=== PATIENT | female | born 1945 | race Two or more races ===

== ENCOUNTER → 2017-05-19 | Outpatient (CLI) | payer OTHER ==
[~2017-05-19] MED LIST: CA C PO; CHOL200074 PO; DORZ10DR7 EACHEYE; LACT1CAP15 PO; LEVO100T PO; MESA1.2T PO; MULT-717 PO; OMEG1CAP23 PO
== END | disposition home or self-care (01) ==
LOC: CFH 10:15
PROVIDERS: ATTEND Family Medicine
DX: Z12.31 Encounter for screening mammogram for malignant neoplasm of breast (principal)
CPT/HCPCS: 77063; G0202

== ENCOUNTER → 2018-05-20 | Outpatient (CLI) | payer OTHER | END | disposition home or self-care (01) | LOC: CFH 09:43 | PROVIDERS: ATTEND Family Medicine | DX: Z12.31 Encounter for screening mammogram for malignant neoplasm of breast (principal); Z85.3 Personal history of malignant neoplasm of breast | CPT/HCPCS: 77063; 77067 ==

== ENCOUNTER → 2018-06-23 | Outpatient (CLI) | payer OTHER | END | disposition home or self-care (01) | LOC: CFH 09:01 | PROVIDERS: ATTEND Family Medicine | DX: Z13.820 Encounter for screening for osteoporosis (principal); M85.88 Other specified disorders of bone density and structure, other site | CPT/HCPCS: 77080 ==

== ENCOUNTER 2019-06-14 09:42 | Outpatient (CLI) | payer OTHER | END 2019-06-14 23:59 | disposition home or self-care (01) | LOC: CFH 09:42 | PROVIDERS: ATTEND Family Medicine | DX: N63.10 Unspecified lump in the right breast, unspecified quadrant (principal); Z80.3 Family history of malignant neoplasm of breast | CPT/HCPCS: 76642; 77065 ==

== ENCOUNTER → 2019-06-29 | Outpatient (CLI) | payer OTHER ==
[~2019-06-29] MED LIST changes: +OMNIPAQUE 350 MG/ML, 100ML BOTTLE ONE
== END | disposition home or self-care (01) ==
LOC: RAD 13:39
PROVIDERS: ATTEND Surgery
DX: K80.20 Calculus of gallbladder without cholecystitis without obstruction (principal); C50.311 Malignant neoplasm of lower-inner quadrant of right female breast; R42 Dizziness and giddiness
CPT/HCPCS: 36415; 70553; 71260; 74177; 82565; Q9967

== ENCOUNTER → 2019-06-30 | Outpatient (CLI) | payer OTHER ==
[~2019-06-30] MED LIST changes: -OMNIPAQUE 350 MG/ML, 100ML BOTTLE ONE
== END | disposition home or self-care (01) ==
LOC: RAD 09:49
PROVIDERS: ATTEND Surgery
DX: M17.0 Bilateral primary osteoarthritis of knee (principal); M19.019 Primary osteoarthritis, unspecified shoulder; C50.311 Malignant neoplasm of lower-inner quadrant of right female breast; R42 Dizziness and giddiness; Z82.49 Family history of ischemic heart disease and other diseases of the circulatory system; Z82.5 Family history of asthma and other chronic lower respiratory diseases; Z83.3 Family history of diabetes mellitus; Z84.89 Family history of other specified conditions; M19.012 Primary osteoarthritis, left shoulder; M19.011 Primary osteoarthritis, right shoulder; M19.072 Primary osteoarthritis, left ankle and foot; M19.071 Primary osteoarthritis, right ankle and foot
CPT/HCPCS: 78306; A9503

== ENCOUNTER → 2019-07-12 | Outpatient (CLI) | payer OTHER ==
[~2019-07-12] MED LIST changes: +ROSU5TAB PO
== END | disposition home or self-care (01) ==
LOC: STAR 09:31
PROVIDERS: ATTEND Surgery
DX: Z01.818 Encounter for other preprocedural examination (principal); C50.311 Malignant neoplasm of lower-inner quadrant of right female breast; Z85.3 Personal history of malignant neoplasm of breast
CPT/HCPCS: 93005

== ENCOUNTER 2019-07-20 11:53 | Observation (INO) | payer OTHER ==
[~2019-07-20] VITALS: Ht 152.4 cm; Wt 82.1 kg
[~2019-07-20 11:53] MED LIST changes: +BUPIVACAINE/EPI 0.5% 1:200K ONE; +ISOSULFAN BLUE 10 MG/ML, 5ML IV ONE
[2019-07-20] MEDS ORDERED: LACTATED RINGERS 1,000 ML IV SCH ×2 (13:27→20:00)
[2019-07-20] MEDS ORDERED: ACETAMINOPHEN 500 MG TABLET PO ONE (13:30)
[2019-07-20] MEDS ORDERED: ONDANSETRON ODT 8 MG PO ONE (13:30)
[2019-07-20] MEDS ORDERED: GABAPENTIN 300 MG CAPSULE PO ONE (13:30)
[2019-07-20] MEDS ORDERED: SCOPOLAMINE PATCH, 1.5MG PATCH.TD72 TD ONE (13:30)
[2019-07-20] MEDS ORDERED: MIDAZOLAM 1 MG/ML, 2ML ONE (14:24)
[2019-07-20] MEDS ORDERED: FENTANYL PF 250 MCG/5ML ONE ×2 (14:24→15:35)
[2019-07-20 14:28] LABS: BASOPHILS # (AUTO) 0.13 x10^3/uL (0-0.1); BASOPHILS % (AUTO) 2 % (0-1); EOSINOPHILS # (AUTO) 0.07 x10^3/uL (0-0.4); EOSINOPHILS % (AUTO) 1 % (1-7); LYMPHOCYTES # (AUTO) 1.84 x10^3/uL (1-3.4); LYMPHOCYTES % (AUTO) 28 % (22-44); MD NO; MEAN CORPUSCULAR HEMOGLOBIN 28.5 pg (27.0-34.8); MEAN CORPUSCULAR HGB CONC 32.7 g/dL (32.4-35.8); MEAN CORPUSCULAR VOLUME 87.2 fL (80-100); MEAN PLATELET VOLUME 8.5 fL (7.4-10.4); MONOCYTES # (AUTO) 0.46 x10^3/uL (0.2-0.8); MONOCYTES % (AUTO) 7 % (2-9); NEUTROPHILS # (AUTO) 4.03 x10^3/uL (1.8-6.8); NEUTROPHILS % (AUTO) 62 % (42-75); PLATELET COUNT 315 x10^3/uL (130-400); RED BLOOD COUNT 4.56 x10^6/uL (3.82-5.3); RED CELL DISTRIBUTION WIDTH 14.8 % (9.6-15.2)
[2019-07-20] MEDS ORDERED: PROMETHAZINE 25 MG/ML, 1ML IV PRN (15:30)
[2019-07-20] MEDS ORDERED: KETOROLAC 30 MG/1 ML IV PRN (15:30)
[2019-07-20] MEDS ORDERED: LABETALOL 5MG/ML, 20ML IV PRN (15:30)
[2019-07-20] MEDS ORDERED: DIAZEPAM 5 MG/ML, 2ML IVPush PRN (15:30)
[2019-07-20] MEDS ORDERED: OXYcodone 5 MG/5 ML ORAL.SOL UDC PO PRN (15:30)
[2019-07-20] MEDS ORDERED: hydrALAzine 20 MG/ML, 1ML IV PRN (15:30)
[2019-07-20] MEDS ORDERED: ACETAMINOPHEN 325 MG TABLET PO PRN (15:30)
[2019-07-20] MEDS ORDERED: MEPERIDINE/PF 25MG/0.5ML IVPush PRN (15:30)
[2019-07-20] MEDS ORDERED: ALBUTEROL SULFATE 2.5 MG/3 ML NPPB PRN (15:30)
[2019-07-20] MEDS ORDERED: GLYCOPYRROLATE 0.2MG/1ML, 5ML ONE (16:49)
[2019-07-20] MEDS ORDERED: CEFAZOLIN 1,000 MG ONE (16:49)
[2019-07-20] MEDS ORDERED: SUCCINYLCHOLINE 20 MG/ML, 10ML ONE (16:49)
[2019-07-20] MEDS ORDERED: DEXAMETHASONE 4 MG/ML, 1ML ONE (16:49)
[2019-07-20] MEDS ORDERED: ROCURONIUM 10MG/ML,5ML ONE (16:49)
[2019-07-20] MEDS ORDERED: PROPOFOL 10 MG/ML, 20ML ONE (16:49)
[2019-07-20] MEDS ORDERED: NEOSTIGMINE 1 MG/ML, 10ML ONE (16:49)
[2019-07-20] MEDS ORDERED: ONDANSETRON 2MG/ML, 2ML ONE (16:49)
[2019-07-20] MEDS ORDERED: FENTANYL PF 100 MCG/2ML ONE ×2 (16:59→17:39)
[2019-07-20] MEDS: FENTANYL PF 100 MCG/2ML IV PRN ×4 (17:03→17:50)
[2019-07-20] MEDS ORDERED: OXYcodone 5 MG/5 ML ORAL.SOL UDC ONE (17:15)
[2019-07-20] MEDS ORDERED: HYDROmorphone 1 MG/ML, 1ML VIAL ONE (17:53)
[2019-07-20] MEDS: HYDROmorphone 2 MG/ML, 1ML IVPush PRN ×2 (17:56→18:10)
[2019-07-20] MEDS ORDERED: MORPHINE SULFATE 4 MG/ML, 1ML IVPush PRN (20:00)
[2019-07-20] MEDS ORDERED: ONDANSETRON 2MG/ML, 2ML IVPush PRN (20:30)
[2019-07-20] MEDS ORDERED: DIPHENHYDRAMINE 50 MG/ML, 1ML ONE (22:58)
[2019-07-21 04:00] VITALS: BP 97/62
[2019-07-21] MEDS ORDERED: LEVOTHYROXINE 100 MCG TABLET PO SCH (06:00)
[2019-07-21] MEDS ORDERED: LEVOTHYROXINE 100 MCG TABLET ONE (06:03)
[2019-07-21 06:47] VITALS: BP 112/72
[2019-07-21] MEDS ORDERED: OMEGA-3/FISH OIL CAPSULE ONE (07:56)
[2019-07-21] MEDS ORDERED: CHOLECALCIFEROL 1,000 UNIT TABLET ONE (07:57)
[2019-07-21] MEDS ORDERED: MESALAMINE 1.2 GM TABLET.DR PO ONE ×2 (07:57→08:04)
[2019-07-21] MEDS ORDERED: MULTIVITAMINS/MINERALS TABLET PO ONE (07:57)
[2019-07-21] MEDS ORDERED: CALCIUM/VITAMIN D3 250-125 TABLET ONE (07:57)
[2019-07-21] MEDS ORDERED: OMEGA-3/FISH OIL CAPSULE PO SCH (09:00)
[2019-07-21] MEDS ORDERED: CHOLECALCIFEROL 1,000 UNIT TABLET PO SCH (09:00)
[2019-07-21] MEDS ORDERED: MULTIVITAMINS/MINERALS TABLET PO SCH (09:00)
[2019-07-21] MEDS ORDERED: MESALAMINE 1.2 GM TABLET.DR PO SCH (09:00)
[2019-07-21] MEDS ORDERED: CALCIUM/VITAMIN D3 250-125 TABLET PO SCH (09:00)
[2019-07-21 09:56] VITALS: BP 95/60
[2019-07-21] MEDS ORDERED: ONDA4TAB13 PO (10:01)
[2019-07-21] MEDS ORDERED: HYDR-3240 PO (10:02)
[2019-07-21] MEDS ORDERED: ATORVASTATIN 20 MG TABLET PO SCH (21:00)
== END 2019-07-21 12:00 | disposition home or self-care (01) ==
LOC: OUT 11:53 → EDSTATUS 15:00 → 4NE 19:08 → OUT 19:08 → 4NE 22:55 → DCLOUNGE 07-21 11:19
PROVIDERS: ADMIT Surgery; ATTEND Surgery
DX: C50.311 Malignant neoplasm of lower-inner quadrant of right female breast (principal); E78.5 Hyperlipidemia, unspecified; E03.9 Hypothyroidism, unspecified; K51.90 Ulcerative colitis, unspecified, without complications; H40.9 Unspecified glaucoma; N62 Hypertrophy of breast; E66.9 Obesity, unspecified; Z68.34 Body mass index [BMI] 34.0-34.9, adult
CPT/HCPCS: 15200; 19318; 36415; 76098; 78195; 85025; 88305; 88307; A9541; C1729; G0378; J0690; J1100; J1170; J2250; J2405; J2704; J3010; J7120; Q0162; J2710; J0330

== ENCOUNTER → 2020-05-23 | Outpatient (CLI) | payer OTHER ==
[~2020-05-23] MED LIST changes: -BUPIVACAINE/EPI 0.5% 1:200K ONE; +HYDR-3240 PO; -ISOSULFAN BLUE 10 MG/ML, 5ML IV ONE; +ONDA4TAB13 PO
== END | disposition home or self-care (01) ==
LOC: CFH 08:51
PROVIDERS: ATTEND Surgery
DX: D48.60 Neoplasm of uncertain behavior of unspecified breast (principal)
CPT/HCPCS: 76882; 77065; G0279

== ENCOUNTER → 2021-05-27 | Outpatient (CLI) | payer OTHER ==
[~2021-05-27] MED LIST changes: +HYDR-2214 PO; -HYDR-3240 PO
== END | disposition home or self-care (01) ==
LOC: CFH 08:57
PROVIDERS: ATTEND Internal Medicine Hematology & Oncology
DX: Z12.31 Encounter for screening mammogram for malignant neoplasm of breast (principal)
CPT/HCPCS: 77063; 77067